=== PATIENT | female | born 1980 | race Two or more races ===

== ENCOUNTER 2019-09-08 07:10 | Day surgery (SDC) | payer OTHER ==
[2019-09-08] MEDS ORDERED: ZIPSOR25 MG PO (10:30)
[2019-09-08] MEDS ORDERED: ZITHROMAX500 MG PO (10:30)
== END 2019-09-08 13:45 | disposition home or self-care (01) ==
LOC: CIR.AMB 07:10
DX: O02.1 Missed abortion (principal)

== ENCOUNTER 2020-04-21 10:44 | Outpatient (CLI) | payer OTHER ==
[~2020-04-21 10:44] MED LIST: ZIPSOR25 MG PO; ZITHROMAX500 MG PO
== END 2020-04-21 11:07 | disposition home or self-care (01) ==
LOC: RX STUDY 10:44
PROVIDERS: ATTEND Obstetrics & Gynecology
DX: N72 Inflammatory disease of cervix uteri (principal)

== ENCOUNTER 2022-12-04 10:12 | Outpatient (CLI) | payer OTHER | END 2022-12-04 10:30 | disposition home or self-care (01) | LOC: RX STUDY 10:12 | PROVIDERS: ATTEND Specialist | DX: N80.8 Other endometriosis (principal) ==